=== PATIENT | male | born 1965 | race African-American/Black ===

== ENCOUNTER 2016-11-28 11:18 | Emergency (ER) | payer OTHER ==
[~2016-11-28] VITALS: Ht 175.3 cm; Wt 99.8 kg
[~2016-11-28 11:18] MED LIST: CIPRO500 MG PO; COLACE100 MG PO; FLAGYL500 MG PO; HYDROCODONE-AP1 EAC6 PO; NORVASC5 MG PO
[2016-11-28 12:07] LABS: URINE BILIRUBIN NEGATIVE (Negative); URINE BLOOD 3+ (Negative); URINE COLOR YELLOW; URINE GLUCOSE-RANDOM* NEGATIVE (Negative); URINE KETONES NEGATIVE (Negative); URINE NITRITE NEGATIVE (Negative); URINE PROTEIN (DIPSTICK) 2+ (Negative); URINE SPECIFIC GRAVITY 1.025 (1.003-1.035); URINE UROBILINOGEN 0.2 E.U./dl (0.2-1.0)
[2016-11-28 12:12] LABS: ABSOLUTE NEUTROPHILS 7.5 thou/uL (1.4-8.2); BASOPHILS 0.9 % (0.0-2.0); EOSINOPHILS 4.6 % (0.0-3.0); HEMATOCRIT 39.3 % (42.0-52.0); HEMOGLOBIN 12.8 gm/dL (14.0-18.0); MCH 29.1 pg (26.0-34.0); MCHC 32.7 g/dL (28.0-37.0); MONOCYTES 4.5 % (1.0-8.0); PLATELET COUNT 230 thou/uL (150-400); RBC 4.42 mil/uL (4.50-6.00); RDW 13.1 % (10.5-14.5); WBC 10.1 thou/uL (4.0-11.0)
[2016-11-28 12:14] LABS: MANUAL DIFF NO
[2016-11-28 12:16] LABS: CALCIUM 9.4 mg/dL (8.5-10.1); CREATININE 1.2 mg/dL (0.7-1.3); POTASSIUM 4.6 mmol/L (3.5-5.1)
[2016-11-28 12:27] LABS: BACTERIA 1-9 Few /HPF (None Seen); CASTS None Seen /LPF (None Seen); CRYSTALS None Seen /LPF (None Seen); SQUAMOUS 0-3 Few /LPF (0-3); URINE RBC >20 Many /HPF (0-2); URINE WBC 0-5 Rare /HPF (0-5); YEAST Present (None Seen)
[2016-11-28] MEDS ORDERED: FLOMAX0.4 MG PO (14:11)
[2016-11-28] MEDS ORDERED: NORCO 5-325 TA1 EACH PO (14:11)
[2016-11-28] MEDS ORDERED: IBUPROFEN 600600 M1 PO (14:11)
== END 2016-11-28 14:29 | disposition home or self-care (01) ==
LOC: ER 11:18
PROVIDERS: Emergency Medicine
DX: N20.0 Calculus of kidney (principal); I10 Essential (primary) hypertension; Z88.0 Allergy status to penicillin; Z87.891 Personal history of nicotine dependence

== ENCOUNTER 2016-12-01 21:02 | Emergency (ER) | payer OTHER ==
[~2016-12-01 21:02] MED LIST changes: +FLOMAX0.4 MG PO; +IBUPROFEN 600600 M1 PO; +NORCO 5-325 TA1 EACH PO
== END 2016-12-01 22:10 | disposition left against medical advice (07) ==
LOC: ER 21:02
DX: Z53.21 Procedure and treatment not carried out due to patient leaving prior to being seen by health care provider (principal)

== ENCOUNTER 2016-12-03 07:02 | Observation (INO) | payer OTHER ==
[~2016-12-03] VITALS: Ht 170.2 cm; Wt 102.1 kg
[2016-12-03 08:28] LABS: URINE BILIRUBIN NEGATIVE (Negative); URINE BLOOD 3+ (Negative); URINE COLOR YELLOW; URINE GLUCOSE-RANDOM* NEGATIVE (Negative); URINE KETONES NEGATIVE (Negative); URINE LEUKOCYTES-REFLEX NEGATIVE (Negative); URINE PROTEIN (DIPSTICK) NEGATIVE (Negative); URINE SPECIFIC GRAVITY 1.015 (1.003-1.035); URINE UROBILINOGEN 0.2 E.U./dl (0.2-1.0)
[2016-12-03 08:54] LABS: CASTS None Seen /LPF (None Seen); CRYSTALS None Seen /LPF (None Seen); SQUAMOUS >10 Many /LPF (0-3)
[2016-12-03 08:55] LABS: URINE WBC-REFLEX 0-5 Rare /HPF (0-5)
[2016-12-03 10:22] LABS: BASOPHILS 1.3 % (0.0-2.0); EOSINOPHILS 4.4 % (0.0-3.0); HEMOGLOBIN 11.8 gm/dL (14.0-18.0); LYMPHOCYTES 16.7 % (24.0-44.0); MCH 29.1 pg (26.0-34.0); MCHC 33.7 g/dL (28.0-37.0); MCV 86.5 fL (80.0-100.0); PLATELET COUNT 218 thou/uL (150-400); POLYS 70.6 % (36.0-66.0); RBC 4.05 mil/uL (4.50-6.00); RDW 12.7 % (10.5-14.5); WBC 8.6 thou/uL (4.0-11.0)
[2016-12-03 10:29] LABS: MANUAL DIFF NO
[2016-12-03 10:35] LABS: POTASSIUM 3.7 mmol/L (3.5-5.1)
[2016-12-03 13:15] VITALS: BP 126/78
[2016-12-03 15:35] VITALS: BP 175/118
[2016-12-03 20:00] VITALS: BP 149/89
[2016-12-04 04:29] VITALS: BP 167/88
[2016-12-04 05:50] LABS: ABSOLUTE NEUTROPHILS 3.9 thou/uL (1.4-8.2); BASOPHILS 1.2 % (0.0-2.0); EOSINOPHILS 6.7 % (0.0-3.0); HEMATOCRIT 35.7 % (42.0-52.0); HEMOGLOBIN 11.8 gm/dL (14.0-18.0); LYMPHOCYTES 28.8 % (24.0-44.0); MCH 28.8 pg (26.0-34.0); MCHC 33.1 g/dL (28.0-37.0); MCV 87.1 fL (80.0-100.0); MONOCYTES 7.1 % (1.0-8.0); PLATELET COUNT 250 thou/uL (150-400); POLYS 56.2 % (36.0-66.0); RDW 12.7 % (10.5-14.5)
[2016-12-04 05:55] LABS: MANUAL DIFF NO
[2016-12-04 06:09] LABS: CALCIUM 8.6 mg/dL (8.5-10.1); CREATININE 1.6 mg/dL (0.7-1.3); POTASSIUM 3.7 mmol/L (3.5-5.1)
[2016-12-04 07:38] VITALS: BP 153/88
[2016-12-04 11:15] VITALS: BP 153/88
== END 2016-12-04 11:46 | disposition home or self-care (01) ==
LOC: ER 07:02 → EROBS 12:07 → 4E 13:15
PROVIDERS: Emergency Medicine; Family Medicine
DX: R31.9 Hematuria, unspecified (principal); I10 Essential (primary) hypertension; K35.80 Unspecified acute appendicitis; N20.1 Calculus of ureter; N17.9 Acute kidney failure, unspecified; Z72.89 Other problems related to lifestyle; Z87.891 Personal history of nicotine dependence